=== PATIENT | female | born 1970 | race Caucasian/White ===

== ENCOUNTER 2017-02-25 14:15 | Emergency (ER) | payer MEDICAID ==
[~2017-02-25] VITALS: Ht 162.6 cm; Wt 61.2 kg
[~2017-02-25 14:15] MED LIST: HYDR-3326 PO; LEVO500T2 PO; METR250T PO
[2017-02-25] MEDS ORDERED: HYDROCODONE/APAP 5-325MG TABLET PO ONE (14:45)
[2017-02-25] MEDS ORDERED: HYDROCODONE/APAP 5-325MG TABLET ONE (14:55)
--- NOTE | 2017-02-25 15:17 | NUR ---
Patient discharged to home in stable conditon. Written and verbal after care instructions given. Patient verbalizes understanding of instructions.
== END 2017-02-25 15:19 | disposition home or self-care (01) ==
LOC: ER 14:15
DX: S90.02XA Contusion of left ankle, initial encounter (principal); F90.9 Attention-deficit hyperactivity disorder, unspecified type; F17.200 Nicotine dependence, unspecified, uncomplicated; Z88.0 Allergy status to penicillin; W01.0XXA Fall on same level from slipping, tripping and stumbling without subsequent striking against object, initial encounter; Y93.89 Activity, other specified; Y92.9 Unspecified place or not applicable; Y99.9 Unspecified external cause status
CPT/HCPCS: A4663

== ENCOUNTER 2021-02-17 03:29 | Emergency (ER) | payer MEDICAID, OTHER ==
[~2021-02-17] VITALS: Ht 162.6 cm; Wt 65.8 kg
--- NOTE | 2021-02-17 03:45 | NUR ---
MD Alex Lujan at bedside to do MSE.
[2021-02-17] MEDS ORDERED: HYDR-3980 PO (03:55)
[2021-02-17] MEDS ORDERED: SULF1TAB48 PO (03:55)
[2021-02-17] MEDS ORDERED: HYDROCODONE/APAP 10-325 MG TABLET ONE (03:58)
[2021-02-17] MEDS ORDERED: diphenhydrAMINE 50 MG/1 ML VIAL ONE (03:58)
[2021-02-17] MEDS ORDERED: BUPIVACAINE PF 0.5% 30 ML VIAL TP ONE (04:00)
[2021-02-17] MEDS ORDERED: HYDROCODONE/APAP 10-325 MG TABLET PO ONE (04:00)
[2021-02-17] MEDS ORDERED: diphenhydrAMINE 50 MG/1 ML VIAL IM ONE (04:00)
--- NOTE | 2021-02-17 04:07 | NUR ---
MD Alex Lujan at bedside to do procedure.
[2021-02-17] MEDS ORDERED: SULFAMETH/TRIMETH 800/160 MG TABLET ONE (04:12)
[2021-02-17] MEDS ORDERED: SULFAMETH/TRIMETH 800/160 MG TABLET PO ONE (04:15)
[2021-02-17 04:30] VITALS: BP 132/89
--- NOTE | 2021-02-17 04:30 | NUR ---
Patient given written and verbal discharge instructions. Patient verbalizes understanding of instructions. Patient is ambulatory with steady gait. Refuses offer of residential placement as she states she is currently applied to one to get in. Patient given list of available shelters in surrounding area. Patient provided meal and toiletries. Patient ambulates with steady gait, V/S stable, given written Rx, advised not to drive, and left with all personal belongings.
== END 2021-02-17 04:30 | disposition home or self-care (01) ==
LOC: ER 03:34
DX: L02.411 Cutaneous abscess of right axilla (principal); F17.210 Nicotine dependence, cigarettes, uncomplicated; Z59.0 Homelessness; Z88.6 Allergy status to analgesic agent; Z88.0 Allergy status to penicillin; F41.9 Anxiety disorder, unspecified; R03.0 Elevated blood-pressure reading, without diagnosis of hypertension; Z87.19 Personal history of other diseases of the digestive system
CPT/HCPCS: 10061; 96372; 99284; 99406; J1200; J3490; A4663